=== PATIENT | female | born 1970 | race Caucasian/White ===

== ENCOUNTER 2017-09-15 18:58 | Emergency (ER) | payer BC ==
[2017-09-15] MEDS ORDERED: ROCEPHIN 1 Gm-D5w 50 ml Bag** 1 G/50 ML IVPB IV STA (20:02)
[2017-09-15] MEDS ORDERED: DUONEB 0.5-3 MG/3 ml Neb IH ONE ×2 (20:02→20:15)
[2017-09-15] MEDS ORDERED: Sodium Chloride 0.9% 1000 ML 1,000 ML IV STA (20:02)
--- NOTE | 2017-09-15 20:06 | ERPHSYRPT ---
- History of Present Illness Time Seen by Provider: 09/15/17 19:55 Source: patient Exam Limitations: clinical condition Patient Subjective Stated Complaint: Cough Triage Nursing Assessment: Methylpred, Proair, Prometh/Cod syrup, Flonase Physician History: PATIENT COMPLAINS OF PERSISTENT COUGH OVER 4-5 DAYS, TREATED WITH ANTIBIOTIC AND STEROIDS WITHOUT RELIEF. DENIES ASSOCIATED FEVER, CHILLS OR DYSPNEA. Timing/Duration: day(s) Cough Quality/Degree: moderate, dry cough Possible Cause: occasional episodes Modifying Factors: Improves With: activity, coughing Associated Symptoms: lightheadedness Allergies/Adverse Reactions: No Known Drug Allergies Allergy (Unverified 09/15/17 19:45) Hx Tetanus, Diphtheria Vaccination/Date Given: No Hx Influenza Vaccination/Date Given: Yes Hx Pneumococcal Vaccination/Date Given: No Immunizations Up to Date: No - Review of Systems Constitutional: No Fever, No Chills Eyes: No Symptoms Ears, Nose, & Throat: No Symptoms Respiratory: Cough, No Dyspnea Cardiac: No Symptoms, No Chest Pain, No Edema, No Syncope Abdominal/Gastrointestinal: No Symptoms, No Abdominal Pain, No Nausea, No Vomiting, No Diarrhea Genitourinary Symptoms: No Symptoms, No Dysuria Musculoskeletal: No Back Pain, No Neck Pain Skin: No Rash Neurological: No Dizziness, No Focal Weakness, No Sensory Changes Psychological: No Symptoms Endocrine: No Symptoms All Other Systems: Reviewed and Negative - Past Medical History Pertinent Past Medical History: Yes Neurological History: No Pertinent History ENT History: No Pertinent History Musculoskeletal History: No Pertinent History GI Medical History: No Pertinent History History: No Pertinent History Psycho-Social History: Anxiety Female Reproductive Disorders: No Pertinent History - Social History Smoking Status: Former smoker How long have you smoked: 2 years Exposure to second hand smoke: No Drug Use: none Patient Lives Alone: No - Female History Hx Now: No - Nursing Vital Signs Nursing Vital Signs: Initial Vital Signs Temperature 98.6 F 09/15/17 19:38 Pulse Rate 93 H 09/15/17 19:38 Respiratory Rate 18 09/15/17 19:38 Blood Pressure 147/82 09/15/17 19:38 O2 Sat by Pulse Oximetry 94 L 09/15/17 19:38 Pain Scale Pain Intensity 7 - Physical Exam General Appearance: no apparent distress, alert Eye Exam: PERRL/EOMI, eyes nml inspection Ears, Nose, Throat Exam: normal ENT inspection, TMs normal, pharynx normal, moist mucous membranes Neck Exam: normal inspection, non-tender, supple, full range of motion Respiratory Exam: normal breath sounds, lungs clear, No respiratory distress Cardiovascular Exam: regular rate/rhythm, normal heart sounds Gastrointestinal/Abdomen Exam: soft, No tenderness Back Exam: normal inspection, No CVA tenderness, No vertebral tenderness Extremity Exam: normal inspection, normal range of motion Neurologic Exam: alert, oriented x 3, cooperative, normal mood/affect, sensation nml, No motor deficits Skin Exam: normal color, warm, dry, No rash Lymphatic Exam: No adenopathy SpO2 Interpretation: normal SpO2: 94 - Radiology Exams Chest X-ray Interpretation: Interpreted by me (NO INFILTRATES) Ordered Tests: Active Orders 24 hr Category Date Time Status Pulse Oximetry (ED) STAT Care 09/15/17 20:02 Active CBC W DIFF Stat Lab 09/15/17 20:15 Completed CULTURE, THROAT Stat Lab 09/15/17 20:04 Received STREP SCREEN-BETA A Stat Lab 09/15/17 20:04 Completed Peak Expiratory Flow Rate ONCE RT 09/15/17 20:06 Completed Respiratory Nebulizer STAT RT 09/15/17 20:04 Completed Medication Summary Discontinued Medications Generic Name Dose Route Start Last Admin Trade Name Freq PRN Reason Stop Dose Admin Albuterol/Ipratropium 3 ml 09/15/17 20:02 09/15/17 20:18 Duoneb 0.5-3 Mg/3 Ml Neb IH 09/15/17 20:03 3 ml STAT ONE Administration Albuterol/Ipratropium Confirm 09/15/17 20:15 Duoneb 0.5-3 Mg/3 Ml Neb Administered 09/15/17 20:16 Dose 3 ml IH .STK-MED ONE Ceftriaxone Sodium/Dextrose 1 g in 50 mls @ 100 mls/hr 09/15/17 20:02 20:24 Rocephin 1 Gm-D5w 50 Ml Bag IV 09/15/17 20:31 100 mls/hr STAT STA Administration Sodium Chloride 1,000 mls @ 999 mls/hr 09/15/17 20:02 09/15/17 20:21 Sodium Chloride 0.9% 1000 Ml IV 09/15/17 21:02 999 mls/hr .Q1H1M STA Administration Sodium Chloride Confirm 09/15/17 20:19 Sodium Chloride 0.9% 1000 Ml Administered 09/15/17 20:20 Dose 1,000 mls @ ud .ROUTE .STK-MED ONE Ceftriaxone Sodium/Dextrose Confirm 09/15/17 20:19 Rocephin 1 Gm-D5w 50 Ml Bag Administered 09/15/17 20:20 Dose 1 g in 50 mls @ ud IV .STK-MED ONE Lab/Rad Data: Laboratory Result Diagrams 09/15/17 20:15 Laboratory Results 09/15/17 09/15/17 Range/Units 20:15 20:04 WBC 11.5 H (4.0-10.5) K/mm3 RBC 4.53 (4.1-5.4) M/mm3 Hgb 12.6 (12.0-16.0) gm/dl Hct 41.3 (35-47) % MCV 91.2 (78-100) fl MCH 27.8 (26-32) pg MCHC 30.5 L (32-36) g/dl RDW 14.3 H (11.5-14.0) % Plt Count 289 (150-450) K/mm3 MPV 9.9 H (6-9.5) fl Gran % 81.9 H (36.0-66.0) % Lymphocytes % 7.8 L (24.0-44.0) % Monocytes % 10.1 (0.0-12.0) % Eosinophils % 0.1 (0.00-5.0) % Basophils % 0.1 (0.0-0.4) % Basophils # 0.01 (0-0.4) Streptococcus Screen NEGATIVE (Negative) - Progress Progress Note: 09/15/17 21:13 CHEST XRAY 09/14/2017 NO NEW/ACUTE FINDINGS 09/15/17 21:13 ADMINISTERED IV NORMAL SALINE 1 LILTER/ IV ROCEPHIN 1GM IVPB Counseled pt/family regarding: lab results, diagnosis, need for follow-up - Departure Time of Disposition: 21:20 Departure Disposition: Home Clinical Impression: ACUTE BRONCHITIS Condition: Stable Critical Care Time: No Referrals: SELENA SHARMA [Primary Care Provider] - Additional Instructions: CONTINUE ALL CURRENT MEDICATIONS, ANTIBIOTIC, PREDNISON ALONG WITH COUGH SYRUP. CONSULT YOUR PRIMARY CARE PROVIDER FOR FOLLOWUP.
[2017-09-15] MEDS ORDERED: ROCEPHIN 1 Gm-D5w 50 ml Bag** 1 G/50 ML IVPB IV ONE (20:19)
[2017-09-15] MEDS ORDERED: Sodium Chloride 0.9% 1000 ML 1,000 ML ONE (20:19)
[2017-09-15 20:21] LABS: BASOPHIL % 0.1 % (0.0-0.4); Basophil (Absolute #) 0.01 (0-0.4); Eosinophil % 0.1 % (0.00-5.0); Eosinophil (Absolute #) 0.01 (0-0.5); Granulocytes % 81.9 % (36.0-66.0); Hematocrit 41.3 % (35-47); Hemoglobin 12.6 gm/dl (12.0-16.0); Lymphocytes % 7.8 % (24.0-44.0); Mean Cell Volume 91.2 fl (78-100); Mean Corpuscular Hemoglobin 27.8 pg (26-32); Mean Corpuscular Hgb Concent. 30.5 g/dl (32-36); Mean Platelet Volume 9.9 fl (6-9.5); Monocyte (Absolute #) 1.16 (0.0-1.3); Monocytes % 10.1 % (0.0-12.0); Platelet Count 289 K/mm3 (150-450); Red Blood Count 4.53 M/mm3 (4.1-5.4); Red Cell Distribution Width 14.3 % (11.5-14.0); White Blood Count 11.5 K/mm3 (4.0-10.5)
[2017-09-15 21:07] VITALS: BP 146/80; PULSE 92
[2017-09-15 21:20] VITALS: O2SAT 94
== END 2017-09-15 21:35 | disposition home or self-care (01) ==
LOC: ED 18:58
DX: J20.9 Acute bronchitis, unspecified (principal)
CPT/HCPCS: 36000; 36415; 85025; 87070; 87430; 94150; 94640; 96360; 96365; 99284; J0696; A9270-GY